=== PATIENT | male | born 1990 | race Two or more races ===

== ENCOUNTER 2019-11-16 22:03 | Emergency (ER) | payer MEDICAID ==
[~2019-11-16] VITALS: Ht 190.5 cm; Wt 108.9 kg
--- NOTE | 2019-11-16 22:24 | NUR ---
THIS IS A 29Y M THAT WALKED HERE FROM THE [place], PT STS WHEN HE GOT HERE HIS R HIP BEGAN HURTING, PT DENIES HX OF THIS OR ANY OTHER MEDICAL CONDITION. PT CONNECTED TO MONITORING, SUSSY GASPAR
[2019-11-16 22:25] VITALS: BP 129/79
[2019-11-16 23:24] LABS: ALANINE AMINOTRANSFERASE 120 U/L (12-78); ALBUMIN 3.9 g/dL (3.4-5.0); ANION GAP 8 mmol/L (5-15); CHLORIDE 105 mmol/L (98-107); CREATININE 0.97 mg/dL (0.7-1.3)
[2019-11-16 23:27] LABS: ALKALINE PHOSPHATASE 81 U/L (45-117); BILIRUBIN,TOTAL 1.6 mg/dL (0.2-1.0); TOTAL PROTEIN 8.1 g/dL (6.4-8.2)
[2019-11-17 00:26] LABS: MICROSCOPIC NOT IND
[2019-11-17 00:29] LABS: BASOPHILS % (AUTO) 2 % (0-1); EOSINOPHILS # (AUTO) 0.13 x10^3/uL (0-0.4); EOSINOPHILS % (AUTO) 1 % (1-7); LYMPHOCYTES # (AUTO) 3.71 x10^3/uL (1-3.4); LYMPHOCYTES % (AUTO) 30 % (22-44); MD SCAN; MEAN CORPUSCULAR HEMOGLOBIN 20.8 pg (27.5-34.5); MEAN CORPUSCULAR HGB CONC 30.5 g/dL (33.2-36.2); MEAN PLATELET VOLUME 11.4 fL (7.4-10.4); MONOCYTES # (AUTO) 0.64 x10^3/uL (0.2-0.8); MONOCYTES % (AUTO) 5 % (2-9); NEUTROPHILS # (AUTO) 7.83 x10^3/uL (1.8-6.8); NEUTROPHILS % (AUTO) 63 % (42-75); PLATELET COUNT 274 x10^3/uL (130-400); RED BLOOD COUNT 5.86 x10^6/uL (4.38-5.82); RED CELL DISTRIBUTION WIDTH 17.9 % (9.4-14.8)
--- NOTE | 2019-11-17 00:34 | NUR ---
NAD, AWAIT FOR RE-EVAL
== END 2019-11-17 01:00 | disposition home or self-care (01) ==
LOC: ED 11-17 00:42
DX: K80.20 Calculus of gallbladder without cholecystitis without obstruction (principal); R10.11 Right upper quadrant pain
CPT/HCPCS: 36415; 76700; 80053; 81003; 83690; 85025; 99284